=== PATIENT | male | born 1995 | race African-American/Black ===

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

== ENCOUNTER 2017-01-05 17:14 | Emergency (ER) | payer OTHER | END 2017-01-05 19:05 | disposition left against medical advice (07) | LOC: ER 17:14 | DX: M79.651 Pain in right thigh (principal); Z53.21 Procedure and treatment not carried out due to patient leaving prior to being seen by health care provider ==

== ENCOUNTER 2017-01-27 14:12 | Emergency (ER) | payer OTHER ==
[~2017-01-27] VITALS: Ht 172.7 cm; Wt 73.0 kg
[2017-01-27 17:35] VITALS: BP 125/65
== END 2017-01-27 18:14 | disposition home or self-care (01) ==
LOC: ER 14:39
DX: S76.111A Strain of right quadriceps muscle, fascia and tendon, initial encounter (principal); J45.909 Unspecified asthma, uncomplicated; X58.XXXA Exposure to other specified factors, initial encounter; Y93.89 Activity, other specified; Y92.89 Other specified places as the place of occurrence of the external cause; Z91.013 Allergy to seafood
CPT/HCPCS: 73502; 73562; 73718; 99284

== ENCOUNTER 2017-06-18 19:25 | Emergency (ER) | payer OTHER ==
[~2017-06-18] VITALS: Ht 172.7 cm; Wt 83.4 kg
[2017-06-19 00:10] VITALS: BP 139/77
== END 2017-06-19 00:50 | disposition home or self-care (01) ==
LOC: ER 21:47
DX: S06.0X0A Concussion without loss of consciousness, initial encounter (principal); S16.1XXA Strain of muscle, fascia and tendon at neck level, initial encounter; Z91.013 Allergy to seafood; V43.52XA Car driver injured in collision with other type car in traffic accident, initial encounter; Y93.89 Activity, other specified; Y92.488 Other paved roadways as the place of occurrence of the external cause
CPT/HCPCS: 99282